=== PATIENT | male | born 1935 | race Caucasian/White ===

== ENCOUNTER 2016-05-10 11:12 | Outpatient (CLI) | payer MEDICARE, OTHER | END 2016-05-10 11:13 | disposition home or self-care (01) | DX: E78.5 Hyperlipidemia, unspecified (principal); M19.041 Primary osteoarthritis, right hand; Z12.5 Encounter for screening for malignant neoplasm of prostate; E11.8 Type 2 diabetes mellitus with unspecified complications | CPT/HCPCS: 36415; 80053; 80061; 83036; 85025; G0103 ==

== ENCOUNTER 2016-06-15 15:00 | Outpatient (CLI) | payer MEDICARE, OTHER | END 2016-06-15 15:01 | DX: L03.116 Cellulitis of left lower limb (principal) ==

== ENCOUNTER 2016-07-30 12:53 | Outpatient (CLI) | payer MEDICARE, OTHER | END 2016-07-30 12:54 | disposition home or self-care (01) | DX: R91.8 Other nonspecific abnormal finding of lung field (principal); J90 Pleural effusion, not elsewhere classified ==

== ENCOUNTER 2016-07-31 10:29 | Outpatient (CLI) | payer MEDICARE, OTHER | END 2016-07-31 10:30 | disposition home or self-care (01) | DX: I50.9 Heart failure, unspecified (principal); R00.1 Bradycardia, unspecified; I51.7 Cardiomegaly; I10 Essential (primary) hypertension; I25.10 Atherosclerotic heart disease of native coronary artery without angina pectoris; Z95.5 Presence of coronary angioplasty implant and graft ==

== ENCOUNTER 2016-08-04 09:10 | Outpatient (CLI) | payer MEDICARE, OTHER | END 2016-08-04 09:11 | DX: B37.2 Candidiasis of skin and nail (principal) ==

== ENCOUNTER 2016-08-04 09:25 | Outpatient (CLI) | payer MEDICARE, OTHER | END 2016-08-04 09:26 | disposition home or self-care (01) | DX: J18.9 Pneumonia, unspecified organism (principal); E11.9 Type 2 diabetes mellitus without complications; R06.00 Dyspnea, unspecified ==

== ENCOUNTER 2016-08-12 16:25 | Outpatient (CLI) | payer MEDICARE, OTHER | END 2016-08-12 16:26 | disposition home or self-care (01) | DX: J18.9 Pneumonia, unspecified organism (principal) ==

== ENCOUNTER 2016-09-05 08:52 | Outpatient (CLI) | payer MEDICARE, OTHER | END 2016-09-05 08:53 | disposition EMS.NT | LOC: EMS 08:52 | PROVIDERS: ATTEND Surgery | DX: Z03.89 Encounter for observation for other suspected diseases and conditions ruled out (principal); W18.39XA Other fall on same level, initial encounter; Y92.002 Bathroom of unspecified non-institutional (private) residence as the place of occurrence of the external cause ==

== ENCOUNTER 2016-09-06 08:00 | Outpatient (CLI) | payer MEDICARE, OTHER ==
[2016-09-06 13:43] LABS: BASOPHILS % (AUTO) 0.7 %; EOSINOPHILS # (AUTO) 0.1 10^3/uL (0.0-0.7); EOSINOPHILS % (AUTO) 1.5 %; HCT - HEMATOCRIT 34.7 % (42.0-52.0); HGB - HEMOGLOBIN 11.6 g/dL (14.0-18.0); MEAN CORPUSCULAR HEMOGLOBIN 28.5 pg (27.0-31.0); MEAN CORPUSCULAR HGB CONC 33.5 g/dL (32.0-36.0); MEAN CORPUSCULAR VOLUME 85.1 fL (80.0-94.0); MEAN PLATELET VOLUME 9.3 fL (7.4-11.4); MONOCYTES # (AUTO) 0.5 10^3/uL (0.0-1.0); MONOCYTES % (AUTO) 10.1 %; NEUTROPHILS # (AUTO) 3.1 10^3/uL (1.5-6.6); NEUTROPHILS % (AUTO) 65.7 %; RED BLOOD COUNT 4.07 10^6/uL (4.70-6.10); RED CELL DISTRIBUTION WIDTH 17.2 % (12.0-15.0); UNCORRECTED WHITE BLOOD COUNT 4.7 x10^3/uL; WHITE BLOOD COUNT 4.7 x10^3/uL (4.8-10.8)
[2016-09-06 13:51] LABS: CALCIUM 8.6 mg/dL (8.5-10.3); CREATININE 1.2 mg/dL (0.6-1.2); POTASSIUM 3.4 mmol/L (3.5-5.0)
[2016-09-06 14:00] LABS: IRON 25 ug/dL (45-182); TOTAL IRON BINDING CAPACITY 371 ug/dL (250-450); TRANSFERRIN 265 mg/dL (180-329)
[2016-09-06 14:21] LABS: FERRITIN 83.6 ng/mL (23.9-336.2)
== END 2016-09-06 08:01 | disposition home or self-care (01) ==
LOC: LAB.WCP 08:00
PROVIDERS: ATTEND Physician Assistant Medical
DX: D64.9 Anemia, unspecified (principal); I50.9 Heart failure, unspecified
CPT/HCPCS: 36415; 80048; 82607; 82728; 82746; 83540; 83880; 84443; 84466; 85025

== ENCOUNTER 2016-09-23 15:08 | Outpatient (CLI) | payer MEDICARE, OTHER | END 2016-09-23 15:09 | disposition home or self-care (01) | LOC: LAB.WCP 15:08 | PROVIDERS: ATTEND Physician Assistant Medical | DX: R23.8 Other skin changes (principal) | CPT/HCPCS: 87070; 87205 ==

== ENCOUNTER 2016-12-21 10:25 | Outpatient (CLI) | payer MEDICARE, OTHER ==
[2016-12-21 21:07] LABS: BASOPHILS % (AUTO) 0.7 %; EOSINOPHILS # (AUTO) 0.1 10^3/uL (0.0-0.7); EOSINOPHILS % (AUTO) 1.8 %; HGB - HEMOGLOBIN 12.8 g/dL (14.0-18.0); LYMPHOCYTES # (AUTO) 1.2 10^3/uL (1.5-3.5); LYMPHOCYTES % (AUTO) 21.2 %; MEAN CORPUSCULAR HEMOGLOBIN 29.7 pg (27.0-31.0); MEAN CORPUSCULAR VOLUME 92.8 fL (80.0-94.0); MONOCYTES # (AUTO) 0.5 10^3/uL (0.0-1.0); MONOCYTES % (AUTO) 7.9 %; NEUTROPHILS % (AUTO) 68.4 %; RED BLOOD COUNT 4.31 10^6/uL (4.70-6.10); RED CELL DISTRIBUTION WIDTH 16.7 % (12.0-15.0); UNCORRECTED WHITE BLOOD COUNT 5.8 x10^3/uL; WHITE BLOOD COUNT 5.8 x10^3/uL (4.8-10.8)
[2016-12-21 21:14] LABS: ALBUMIN/GLOBULIN RATIO 1.1 (1.0-2.2); BILIRUBIN,TOTAL 1.3 mg/dL (0.2-1.0); BUN - BLOOD UREA NITROGEN 39 mg/dL (6-20); CALCIUM 9.2 mg/dL (8.5-10.3); CARBON DIOXIDE - CO2 28 mmol/L (21-32); CHLORIDE 101 mmol/L (101-111); CHOL/HDL RATIO 2.7 (<5.0); CHOLESTEROL 102 mg/dL; CREATININE 1.4 mg/dL (0.6-1.2); GFR - MDRD 49 (>89); GLUCOSE 147 mg/dL (70-100); HDL CHOLESTEROL 38 mg/dL; LDL/HDL RATIO 1.4 (<3.6); POTASSIUM 3.7 mmol/L (3.5-5.0); SODIUM 139 mmol/L (135-145); TOTAL PROTEIN 7.4 g/dL (6.7-8.2); TRIGLYCERIDES 61 mg/dL; VLDL CHOLESTEROL 12 mg/dL
[2016-12-21 21:15] LABS: HEMOGLOBIN A1C 0.57 g/dL
== END 2016-12-21 10:26 | disposition home or self-care (01) ==
LOC: LAB.WCP 10:25
PROVIDERS: ATTEND Physician Assistant Medical
DX: E11.9 Type 2 diabetes mellitus without complications (principal); D64.9 Anemia, unspecified
CPT/HCPCS: 36415; 80053; 80061; 83036; 85025

== ENCOUNTER 2017-07-04 08:24 | Outpatient (CLI) | payer MEDICARE, OTHER ==
[2017-07-04 12:51] LABS: BASOPHILS % (AUTO) 0.9 %; EOSINOPHILS # (AUTO) 0.1 10^3/uL (0.0-0.7); EOSINOPHILS % (AUTO) 1.3 %; HGB - HEMOGLOBIN 13.2 g/dL (14.0-18.0); LYMPHOCYTES # (AUTO) 0.9 10^3/uL (1.5-3.5); LYMPHOCYTES % (AUTO) 15.7 %; MEAN CORPUSCULAR HEMOGLOBIN 30.8 pg (27.0-31.0); MEAN CORPUSCULAR HGB CONC 33.7 g/dL (32.0-36.0); MEAN CORPUSCULAR VOLUME 91.2 fL (80.0-94.0); MEAN PLATELET VOLUME 9.5 fL (7.4-11.4); MONOCYTES # (AUTO) 0.4 10^3/uL (0.0-1.0); MONOCYTES % (AUTO) 8.1 %; PLT - PLATELET COUNT 147 10^3/uL (130-450); RED BLOOD COUNT 4.27 10^6/uL (4.70-6.10); RED CELL DISTRIBUTION WIDTH 16.4 % (12.0-15.0); WHITE BLOOD COUNT 5.5 x10^3/uL (4.8-10.8)
[2017-07-04 13:37] LABS: ALBUMIN 3.9 g/dL (3.2-5.5); ALBUMIN/GLOBULIN RATIO 1.2 (1.0-2.2); ALKALINE PHOSPHATASE 68 IU/L (42-121); ALT ALANINE AMINOTRANSFERASE 17 IU/L (10-60); AST ASPARTATE AMINOTRANSFERASE 19 IU/L (10-42); BILIRUBIN,TOTAL 1.8 mg/dL (0.2-1.0); BUN - BLOOD UREA NITROGEN 25 mg/dL (6-20); CALCIUM 8.7 mg/dL (8.5-10.3); CARBON DIOXIDE - CO2 27 mmol/L (21-32); CHLORIDE 99 mmol/L (101-111); CHOLESTEROL 101 mg/dL; CREATININE 1.1 mg/dL (0.6-1.2); GFR - MDRD 65 (>89); GLUCOSE 155 mg/dL (70-100); HDL CHOLESTEROL 34 mg/dL; LDL CHOLESTEROL,CALCULATED 55 mg/dL; LDL/HDL RATIO 1.6 (<3.6); SODIUM 135 mmol/L (135-145); TOTAL PROTEIN 7.1 g/dL (6.7-8.2); VLDL CHOLESTEROL 12 mg/dL
[2017-07-04 13:39] LABS: HB2 TOTAL 13.8 g/dL; HEMOGLOBIN A1C 0.6 g/dL; HEMOGLOBIN A1C % 6.1 % (4.6-6.2)
== END 2017-07-04 08:25 | disposition home or self-care (01) ==
LOC: LAB.WCP 08:24
PROVIDERS: ATTEND Physician Assistant Medical
DX: E78.5 Hyperlipidemia, unspecified (principal); E11.9 Type 2 diabetes mellitus without complications; Z12.5 Encounter for screening for malignant neoplasm of prostate; D64.9 Anemia, unspecified
CPT/HCPCS: 36415; 80053; 80061; 83036; 85025; G0103; 83721; 84153

== ENCOUNTER 2017-07-14 20:30 | Emergency (ER) | payer MEDICARE, OTHER ==
--- NOTE | 2017-07-14 21:25 | ED Physician Documentation ---
History of Present Illness - Stated complaint Stated Complaint: EAR BLEEDING - Chief complaint Chief Complaint: General - History obtained from History obtained from: Patient - History of Present Illness Timing: Today Pain level now: 8 Improved by: no ameliorating factors Worsened by: no exacerbating factors - Additonal information Additional information: patient had surgery performed on his left ear earlier today in outpatient setting (dermatology office in [facility]); started bleeding from the site earlier this evening, was told (prior to leaving office) to apply pressure should he start bleeding, but he continues to bleed despite applying pressure at home. He is on coumadin for atrial fibrillation Review of Systems Respiratory: denies: Dyspnea Neurologic: denies: Generalized weakness PD PAST MEDICAL HISTORY - Past Medical History Cardiovascular: Hypertension, High cholesterol, [place], Atrial fibrillation Respiratory: Shortness of breath Neuro: None Endocrine/Autoimmune: Type 2 diabetes GI: Hemorrhoids : None HEENT: Chronic hearing loss Psych: None Musculoskeletal: Osteoarthritis, Chronic back pain Derm: None - Past Surgical History Past Surgical History: Yes Ortho: Other Cardiovascular: Coronary stent Derm: Skin cancer surgery - Present Medications Home Medications: Ambulatory Orders Medication Instructions Recorded Confirmed Aspirin [Aspir-Low] 81 mg PO DAILY 06/16/15 07/14/17 Furosemide 40 mg PO DAILY 06/16/15 07/14/17 SITagliptin [Januvia] 100 mg PO DAILY 06/16/15 07/14/17 Simvastatin [Zocor] 40 mg PO QPM 06/16/15 07/14/17 Telmisartan [Micardis] 160 mg PO DAILY 06/16/15 07/14/17 Triamterene/Hydrochlorothiazid 1 cap DAILY 06/16/15 07/14/17 [Triamterene-Hctz 37.5-25 mg Cp] Warfarin [Coumadin] 10 mg PO MO 06/16/15 07/14/17 metFORMIN [Glucophage] 500 mg PO BIDWM 06/16/15 07/14/17 Cholecalciferol (Vitamin D3) 1,000 units PO DAILY 06/17/15 07/14/17 [Vitamin D3] Oxycodone HCl/Acetaminophen 1 tab PO Q6H PRN 06/17/15 07/14/17 [Oxycodone-Acetaminophen 5-325] Potassium Chloride 10 meq PO BIDWM 06/17/15 07/14/17 hydrALAZINE [Apresoline] 50 mg PO TID 06/17/15 07/14/17 Ciprofloxacin HCl [Cipro] 500 mg PO BID 06/28/16 07/14/17 - Allergies Allergies/Adverse Reactions: Allergies Allergy/AdvReac Type Severity Reaction Status Date / Time No Known Drug Allergies Allergy Verified 07/14/17 20:44 - Social History Does the pt smoke?: No Smoking Status: Never smoker Does the pt drink ETOH?: No Does the pt have substance abuse?: No PD ED PE NORMAL - Vitals Vital signs reviewed: Yes - General General: Alert and oriented X 3, No acute distress, Well developed/nourished - Derm Derm: Normal color, Warm and dry PD ED PE EXPANDED - HEENT HEENT Visual: 1 - laceration ((surgical site, not laceration). surgical site is C/D/I with sutures intact and in place and no active bleeding, no swelling) 2 - swelling (there is packing material sutured in place which is soaked/ saturated with blood and there is slow, steady bright red blood dripping from packing) Results - Vitals Vitals: Vital Signs - 24 hr 07/14/17 23:19 Temperature 36.6 C Heart Rate 66 Respiratory 18 Rate Blood Pressure 136/77 H O2 Saturation 96 Oxygen O2 Source Room air Oxygen Flow Rate 2 - Labs Labs: Laboratory Tests 07/14/17 07/14/17 21:45 21:47 WBC 7.6 RBC 4.50 L Hgb 13.7 L Hct 41.7 L MCV 92.6 MCH 30.3 MCHC 32.7 RDW 16.8 H Plt Count 170 MPV 9.1 Neut # 6.3 Lymph # 0.7 L Elmore # 0.5 Eos # 0.1 Baso # 0.1 Absolute Nucleated RBC 0.00 Nucleated RBC % 0.0 PT 38.4 H INR 3.6 H APTT 38.1 H PD MEDICAL DECISION MAKING - ED course Complexity details: considered differential, d/w patient ED course: D/W Dr. Houston (ict business development manager who performed procedure earlier today); she recommends applying pressure dressing, would strongly prefer packing material and sutures be left in place. Fortunately, hemostasis was achieved with pressure dressing (gauze placed behind and on top of (lateral to) the ear, followed by DEEPAK wrap around head). Blood tests are reassuring. Patient is comfortable with going home and understands that he is to call the clinic in the morning and will be seen there 07/15/17 Departure - Departure Disposition: 01 Home, Self Care Clinical Impression: Post-op bleeding Condition: Good Instructions: ED Wound Check Post Op Bleeding Comments: I talked with Dr. Celso henry and she recommends that you follow-up in the [facility] tomorrow; she will not be working tomorrow, but one of her colleagues will reevaluate you. Discharge Date/Time: 07/14/17 23:19
[2017-07-14 22:03] LABS: BASOPHILS # (AUTO) 0.1 10^3/uL (0.0-0.1); BASOPHILS % (AUTO) 1.2 %; EOSINOPHILS # (AUTO) 0.1 10^3/uL (0.0-0.7); EOSINOPHILS % (AUTO) 1.2 %; HGB - HEMOGLOBIN 13.7 g/dL (14.0-18.0); LYMPHOCYTES # (AUTO) 0.7 10^3/uL (1.5-3.5); LYMPHOCYTES % (AUTO) 8.7 %; MEAN CORPUSCULAR HEMOGLOBIN 30.3 pg (27.0-31.0); MEAN CORPUSCULAR HGB CONC 32.7 g/dL (32.0-36.0); MEAN CORPUSCULAR VOLUME 92.6 fL (80.0-94.0); MEAN PLATELET VOLUME 9.1 fL (7.4-11.4); MONOCYTES # (AUTO) 0.5 10^3/uL (0.0-1.0); MONOCYTES % (AUTO) 6.2 %; NEUTROPHILS # (AUTO) 6.3 10^3/uL (1.5-6.6); NEUTROPHILS % (AUTO) 82.7 %; PLT - PLATELET COUNT 170 10^3/uL (130-450); RED CELL DISTRIBUTION WIDTH 16.8 % (12.0-15.0); WHITE BLOOD COUNT 7.6 x10^3/uL (4.8-10.8)
[2017-07-14 22:39] LABS: INR 3.6 (0.8-1.2); PT - PROTHROMBIN TIME 38.4 secs (9.9-12.6)
[2017-07-14] MEDS ORDERED: oxyCOD/ACETAMIN 5 MG/325 MG TABLET PO STA (23:08)
[2017-07-14 23:21] VITALS: BP 136/77
== END 2017-07-14 23:19 | disposition home or self-care (01) ==
LOC: ED 20:30
DX: L76.22 Postprocedural hemorrhage of skin and subcutaneous tissue following other procedure (principal); I48.91 Unspecified atrial fibrillation; I10 Essential (primary) hypertension; I25.2 Old myocardial infarction; E78.00 Pure hypercholesterolemia, unspecified; E11.9 Type 2 diabetes mellitus without complications; Z79.84 Long term (current) use of oral hypoglycemic drugs; Z79.01 Long term (current) use of anticoagulants; Z95.5 Presence of coronary angioplasty implant and graft
CPT/HCPCS: 36415; 85025; 85610; 85730; 99283; A9270

== ENCOUNTER 2017-07-15 04:47 | Outpatient (CLI) | payer MEDICARE, OTHER | END 2017-07-15 04:48 | disposition short-term general hospital (02) | LOC: EMS 04:47 | PROVIDERS: ATTEND Surgery | DX: H95.42 Postprocedural hemorrhage of ear and mastoid process following other procedure (principal) | CPT/HCPCS: A0425; A0429 ==

== ENCOUNTER 2017-08-05 05:04 | Outpatient (CLI) | payer MEDICARE, OTHER | END 2017-08-05 05:05 | disposition short-term general hospital (02) | LOC: EMS 05:04 | PROVIDERS: ATTEND Surgery | DX: R07.9 Chest pain, unspecified (principal); R51 Headache; W07.XXXA Fall from chair, initial encounter; Y92.009 Unspecified place in unspecified non-institutional (private) residence as the place of occurrence of the external cause | CPT/HCPCS: A0425; A0429 ==